=== PATIENT | male | born 1990 | race African-American/Black ===

== ENCOUNTER 2023-02-01 13:10 | Outpatient (CLI) | payer OTHER, SELFPAY ==
--- NOTE | ~2023-02-01 | XR_ITS ---
EXAMINATION: XR finger 4th LT min 2V INDICATION: Left fourth finger pain, initial encounter TECHNIQUE: Four views of the left fourth finger are obtained. COMPARISON: None available FINDINGS: There is an acute, traumatic, oblique, intra-articular fracture at the medial base of the f ourth distal phalanx which involves greater than 50% of the articular surface. Soft tissue swelling s urrounds the fracture. No additional fracture is identified. The remaining joint spaces are normal. IMPRESSION: 1. Oblique intra-articular fracture at the medial base of the fourth distal phalanx involving greater than 50% of the articular surface. Orthopedic evaluation is recommended. Reviewed, dictated and finalized at location B. ARCHITECT IMPRESSION: 1. Oblique intra-articular fracture at the medial base of the fourth distal pha lanx involving greater than 50% of the articular surface. Orthopedic evaluation is recommended.
== END 2023-02-01 13:11 | disposition home or self-care (01) ==
PROVIDERS: Visit Provider Physician Assistant Surgical
DX: S62.635A Displaced fracture of distal phalanx of left ring finger, initial encounter for closed fracture (principal); X58.XXXA Exposure to other specified factors, initial encounter
CPT/HCPCS: 73140

== ENCOUNTER 2023-03-21 13:11 | Outpatient (CLI) | payer OTHER, SELFPAY ==
--- NOTE | ~2023-03-21 | XR_ITS ---
EXAM: XR finger 4th LT min 2V DATE: 03/21/2023 13:22 HISTORY: S69.90XA - HX DISTAL 4TH FINGER FX, FOLLOW UP . COMPARISON: 02/01/2023. FINDINGS: Normal mineralization. Redemonstration of the oblique intra-articular fracture at the medi al base of the fourth distal phalanx, with interval healing change No acute fracture or dislocation. No lytic or blastic lesion. Joint spaces are maintained. No erosion or periosteal change. Soft tissue s within normal limits. IMPRESSION: Evolving healing change of the fourth distal phalanx fracture. Reviewed, dictated and finalized at location K. NER/MEDICAL EXAMINER
== END 2023-03-21 13:12 | disposition home or self-care (01) ==
PROVIDERS: Visit Provider Plastic Surgery
DX: S62.635D Displaced fracture of distal phalanx of left ring finger, subsequent encounter for fracture with routine healing (principal); X58.XXXD Exposure to other specified factors, subsequent encounter
CPT/HCPCS: 73140